=== PATIENT | male | born 1990 | race Caucasian/White ===

== ENCOUNTER 2017-10-10 09:01 | Emergency (ER) | payer OTHER ==
[~2017-10-10] VITALS: Ht 182.9 cm; Wt 67.6 kg
[~2017-10-10 09:01] MED LIST: FLEXERIL10 MG PO; ULTRAM50 MG PO; ZOFRAN4 MG PO
[2017-10-10 09:48] LABS: ADD MIUA? NO; BILIRUBIN NEGATIVE; BLOOD NEGATIVE; COLOR STRAW ((YELLOW)); GLUCOSE (STRIP) NEGATIVE; KETONES NEGATIVE; LEUKOCYTES NEGATIVE; NITRITE NEGATIVE; PROTEIN (STRIP) NEGATIVE; SPECIFIC GRAVITY 1.009 (1.000-1.030); UCUL ADDED? NO; UROBILINOGEN 0.2 MG/DL (0.2-1.0)
[2017-10-10 09:58] LABS: ADD MEDTOX COMMENT Y; AMPHETAMINE NEGATIVE (500 ng/mL); BARBITURATES NEGATIVE (200 ng/mL); BENZODIAZEPINES NEGATIVE (150 ng/mL); COCAINE NEGATIVE (150 ng/mL); INTERNAL CONTROLS VALID? YES; METHADONE NEGATIVE (200 ng/mL); METHAMPHETAMINE NEGATIVE (500 ng/mL); OPIATES (MORPHINE) NEGATIVE (100 ng/mL); OXYCODONE NEGATIVE (100 ng/mL); PHENCYCLIDINE NEGATIVE (25 ng/mL); PROPOXYPHENE NEGATIVE (300 ng/mL); THC CANNABINOIDS PRESUMPTIVE POSITIVE (50 ng/mL); TRICYCLIC ANTIDEPRESSANTS NEGATIVE (300 ng/mL)
[2017-10-10 10:02] LABS: EOSINOPHIL (%) 0.1 % (0-5); HEMATOCRIT 46.1 % (38.0-50.0); IMMATURE GRANULOCYTE (%) 0.3 % (0.0-0.7); INSTRUMENT ABS NEUTROPHIL CT 9.7 K/uL; LYMPHOCYTE COUNT 1.6 K/uL (1.0-2.8); MCH 29.1 PG (29.0-34.0); MCHC 34.1 G/DL (30.0-36.0); MCV 85.5 FL (86-99); MEAN PLAT.VOLUME 9.6 uM^3 (9.0-12.4); MONOCYTE (%) 4.7 % (3-12); MONOCYTE COUNT 0.6 K/uL (0-0.8); NEUTROPHIL COUNT 9.7 K/uL (1.8-6.4); PLATELET COUNT 284 K/uL (156-360); RBC DIS.WIDTH-SD 37.4 % (39-53); RED BLOOD COUNT 5.39 M/uL (4.00-5.50)
[2017-10-10 10:10] LABS: CHLORIDE 104 mEq/L (99-109); SODIUM 138 mEq/L (136-147)
[2017-10-10 10:12] LABS: GLUCOSE 106 mg/dL (70-99)
[2017-10-10 10:14] LABS: ANION GAP 10 MEQ/L (2-14); TOTAL BILIRUBIN 0.9 mg/dL (0.0-1.0)
[2017-10-10 10:16] LABS: ALKALINE PHOSPHATASE 73 IU/L (3-129); GFR ESTIMATE (CALCULATED) > 59 mL/min/
[2017-10-10 10:17] LABS: UREA NITROGEN (BUN) 11 mg/dL (9-23)
[2017-10-10 10:19] LABS: LIPASE 17 U/L (1.0-51.0)
[2017-10-10] MEDS ORDERED: ZOFRAN ODT4 MG PO (12:29)
[2017-10-10] MEDS ORDERED: BENTYL10 MG PO (12:29)
[2017-10-10 13:32] VITALS: BP 136/87
== END 2017-10-10 13:33 | disposition home or self-care (01) ==
LOC: EME 09:01
PROVIDERS: Emergency Medicine
DX: R10.84 Generalized abdominal pain (principal); R11.2 Nausea with vomiting, unspecified; F12.10 Cannabis abuse, uncomplicated
CPT/HCPCS: 74177; 80053; 81003; 83690; 84999; 85025; 99281; 99284; J1885; J2405; J2765; J7030

== ENCOUNTER → 2017-12-26 | Outpatient (CLI) | payer OTHER ==
[~2017-12-26] VITALS: Ht 182.9 cm; Wt 70.8 kg
[~2017-12-26] MED LIST changes: +BENTYL10 MG PO; +MEN'S MULTI-VI1 EACH PO; +TESSALON PERLE100 MG PO; +VITAMIN C250 MG PO; +ZOFRAN ODT4 MG PO
== END | disposition home or self-care (01) ==
LOC: AMB 11:56
PROC: 0DJ08ZZ Inspection of Upper Intestinal Tract, Via Natural or Artificial Opening Endoscopic (ICD-10-PCS; principal; 2017-12-26)
DX: R10.13 Epigastric pain (principal); K21.9 Gastro-esophageal reflux disease without esophagitis; Z87.891 Personal history of nicotine dependence; Z88.0 Allergy status to penicillin; Z88.8 Allergy status to other drugs, medicaments and biological substances
CPT/HCPCS: J2250

== ENCOUNTER 2018-02-18 06:35 | Emergency (ER) | payer OTHER ==
[~2018-02-18] VITALS: Ht 193 cm; Wt 70.3 kg
[2018-02-18 07:41] LABS: HEMATOCRIT 43.5 % (38.0-50.0); HEMOGLOBIN 15.3 G/DL (12.5-16.6); MCH 30.4 PG (29.0-34.0); MCHC 35.2 G/DL (30.0-36.0); MCV 86.5 FL (86-99); PLATELET COUNT 220 K/uL (156-360); RBC DIS.WIDTH-CV 11.5 % (11.8-14.6); RBC DIS.WIDTH-SD 36.3 % (39-53); RED BLOOD COUNT 5.03 M/uL (4.00-5.50)
[2018-02-18 07:57] LABS: ALBUMIN 4.8 g/dL (3.2-4.8); CHLORIDE 105 mEq/L (99-109); POTASSIUM 3.6 mEq/L (3.7-5.4); SODIUM 140 mEq/L (136-147)
[2018-02-18 07:59] LABS: GLUCOSE 123 mg/dL (70-99)
[2018-02-18 08:00] LABS: TOTAL PROTEIN 7.8 g/dL (6.4-8.3)
[2018-02-18 08:01] LABS: TOTAL BILIRUBIN 0.7 mg/dL (0.0-1.0)
[2018-02-18 08:03] LABS: ALKALINE PHOSPHATASE 80 IU/L (3-129); CREATININE 0.9 mg/dL (0.6-1.3); GFR ESTIMATE (CALCULATED) > 59 mL/min/ (58.99-99999)
[2018-02-18 08:04] LABS: UREA NITROGEN (BUN) 14 mg/dL (9-23)
[2018-02-18 08:05] LABS: AST (GOT) 23 IU/L (2-34)
[2018-02-18 08:06] LABS: ALT (GPT) 25 IU/L (3-49)
[2018-02-18 08:07] LABS: LIPASE 13 U/L (1.0-51.0)
[2018-02-18] MEDS ORDERED: ULTRAM50 MG PO (09:15)
[2018-02-18] MEDS ORDERED: ZOFRAN ODT4 MG PO (09:15)
[2018-02-18 10:02] VITALS: BP 144/72
== END 2018-02-18 10:10 | disposition home or self-care (01) ==
LOC: EME 06:35
PROVIDERS: Nurse Practitioner Family
DX: R10.84 Generalized abdominal pain (principal); R11.2 Nausea with vomiting, unspecified; K21.9 Gastro-esophageal reflux disease without esophagitis; F90.9 Attention-deficit hyperactivity disorder, unspecified type; Z88.2 Allergy status to sulfonamides; Z88.0 Allergy status to penicillin; Z87.891 Personal history of nicotine dependence
CPT/HCPCS: 74177; 80053; 83690; 85027; 99281; 99285; J1885; J2405; J7030

== ENCOUNTER → 2018-03-16 | Outpatient (CLI) | payer OTHER ==
[~2018-03-16] VITALS: Ht 182.9 cm; Wt 70.8 kg
[~2018-03-16] MED LIST changes: +OMEPRAZOLE40 M1 PO
== END | disposition home or self-care (01) ==
LOC: AMB 10:25
PROC: 0DBE8ZX Excision of Large Intestine, Via Natural or Artificial Opening Endoscopic, Diagnostic (ICD-10-PCS; principal; 2018-03-16)
DX: R10.13 Epigastric pain (principal); R11.2 Nausea with vomiting, unspecified; R19.7 Diarrhea, unspecified; K63.9 Disease of intestine, unspecified; K21.9 Gastro-esophageal reflux disease without esophagitis; R93.5 Abnormal findings on diagnostic imaging of other abdominal regions, including retroperitoneum; Z87.891 Personal history of nicotine dependence; Z88.0 Allergy status to penicillin
CPT/HCPCS: 88305; J2250